=== PATIENT | male | born 1960 | race Caucasian/White ===

== ENCOUNTER → 2018-04-27 | Outpatient (CLI) | payer BC ==
[~2018-04-27] VITALS: Ht 180.3 cm; Wt 86.2 kg
[~2018-04-27] MED LIST: CATHETER FLUSH 10 ML SYR IV PRN; REGADENOSON 0.4 MG/5 ML SYR (LEXISCAN) IV ONE
[2018-04-27 09:21] VITALS: BP 159/94
--- NOTE | 2018-05-02 22:30 | STRESS TEST ---
DATE OF SERVICE: 04/27/2018 RESTING AND POST REGADENOSON TECHNETIUM-99M TETROFOSMIN SPECT CT IMAGING ORDERING PHYSICIAN: Dr. Carter. PRIMARY PHYSICIAN: Dr. Garcia. CLINICAL DIAGNOSES: Shortness of breath, hyperlipidemia, hypertension. Baseline images were carried out after injection of 10.43 mCi of technetium-99m Tetrofosmin. This was followed by 0.4 mg regadenoson and 30.2 mCi of technetium-99m Tetrofosmin for stress imaging. The electrocardiogram showed sinus rhythm at baseline and did not change significantly with the regadenoson infusion. The patient tolerated the procedure well. Review of images at rest and following stress does not indicate distant perfusion defects consistent with significant myocardial ischemia or infarction. Some diaphragmatic attenuation of the inferior wall is seen both at rest and following regadenoson infusion. Gated images show normal global left ventricular systolic function with normal regional wall motion, including the inferior wall. Left ventricular ejection fraction is 60%. Left ventricular end diastolic volume is 75 mL. TID is absent (1.02). CONCLUSIONS: 1. No evidence of significant myocardial ischemia or infarction on this study. 2. Normal regional wall motion. 3. Normal global left ventricular systolic function with a calculated ejection fraction of 60%. Job ID: [id number] DocumentID: [id number] Dictated Date: 05/02/2018 18:20:36 Data Integrity Consultant Date: 05/02/2018 22:30:27 Dictated By: FELICIANO CARTER MD, MA, FACP, FACC,
== END ==
LOC: CARD 07:35
PROVIDERS: ATTEND Internal Medicine Cardiovascular Disease
DX: I10 Essential (primary) hypertension (principal); R73.01 Impaired fasting glucose; E78.5 Hyperlipidemia, unspecified; R06.02 Shortness of breath
CPT/HCPCS: 78452; 93017

== ENCOUNTER → 2018-05-25 | Outpatient (CLI) | payer BC ==
[~2018-05-25] MED LIST changes: -REGADENOSON 0.4 MG/5 ML SYR (LEXISCAN) IV ONE
--- NOTE | 2018-05-25 12:54 | Diagnostic Imaging Report ---
HEPATOBILIARY SCAN DATE: May 25, 2018. INDICATION: 57-year-old male, right upper quadrant abdominal pain. PROCEDURE: 5.26 mCi of Tc-99m choletech was administered intravenously and serial anterior planar images over the liver and upper abdomen were obtained. FINDINGS: There is clearance of background activity by the liver indicating hepatocyte function. There is radiotracer excretion into the bile ducts with prompt filling of the gallbladder. There is radiotracer extension into the small bowel. There is no identified enterogastric reflux. Ensure was administered for calculation of gallbladder ejection fraction. Gallbladder ejection fraction was calculated to be 37%. IMPRESSION: Normal hepatobiliary scan. No evidence of acute or chronic cholecystitis. Dictated by: Dictated on workstation # [id number]
== END ==
LOC: CARD 09:49
PROVIDERS: ATTEND Family Medicine
DX: R10.11 Right upper quadrant pain (principal)
CPT/HCPCS: 78227

== ENCOUNTER → 2019-05-28 | Outpatient (CLI) | payer BC ==
--- NOTE | 2019-05-28 12:44 | Diagnostic Imaging Report ---
EXAMINATION: Gastric emptying study. INDICATION: Bloating. COMPARISON: There are no prior studies available for comparison. TECHNIQUE: This exam is performed following administration of 1.0 mCi of sulfur colloid in egg. FINDINGS: Normally, 50% of the radiotracer clears from the stomach by 60 minutes. On this exam, at 90 minutes 79% of the radiotracer had cleared from the stomach. This would indicate that there is no delay in gastric emptying. At approximately 2 hours, 83% had cleared, and at 4 hours, 98% of the radiotracer had cleared. IMPRESSION: There is no evidence for delay in gastric emptying. Dictated by: Dictated on workstation # [id number]
== END ==
LOC: CARD 06:40
PROVIDERS: ATTEND Internal Medicine Gastroenterology
DX: R14.0 Abdominal distension (gaseous) (principal)
CPT/HCPCS: 78264

== ENCOUNTER → 2019-09-04 | Outpatient (CLI) | payer BC | LOC: CARD 13:21 | PROVIDERS: ATTEND Internal Medicine Cardiovascular Disease | DX: E78.5 Hyperlipidemia, unspecified (principal); I10 Essential (primary) hypertension; R06.02 Shortness of breath; R07.89 Other chest pain; R00.2 Palpitations | CPT/HCPCS: 93306 ==

== ENCOUNTER 2020-01-21 08:54 | Day surgery (SDC) | payer BC ==
[~2020-01-21] VITALS: Ht 180 cm; Wt 93.1 kg
[~2020-01-21 08:54] MED LIST changes: +ASPI-586 PO; +ATEN25TA PO; +BENA20TA7 PO; -CATHETER FLUSH 10 ML SYR IV PRN; +FAMO20TA3 PO; +PANT40TA3 PO; +SIME125T50 PO; +SIMV20TA26 PO
[2020-01-21 09:23] VITALS: BP 134/93
--- NOTE | 2020-01-21 18:28 | OPERATIVE REPORT ---
DATE OF SERVICE: 01/21/2020 LOOP RECORDER IMPLANTATION PREOPERATIVE DIAGNOSIS: Palpitations. POSTOPERATIVE DIAGNOSIS: Palpitations. PROCEDURE: Loop recorder implantation. INDICATIONS: The patient is a 59-year-old man who has been having palpitations that are relatively infrequent, but quite bothersome to him and that lasts for a several minutes at a time. Implantable loop recorder was recommended. Informed consent was obtained. DESCRIPTION OF PROCEDURE: [facility] The left prepectoral area was prepared and draped in the usual sterile fashion. Lidocaine 1% was used for local anesthesia. Tools provided with Medtronic Reveal LINQ device were used to make a pocket anterior to the left fourth intercostal space into which the device was placed and the edges were closed using Dermabond and Steri-Strips. He tolerated the procedure well. The device is Medtronic Reveal LINQ with serial #[id number]. Job ID: [id number] DocumentID: [id number] Dictated Date: 01/21/2020 10:02:34 Well Puller Date: 01/21/2020 18:27:44 Dictated By: FELICIANO JUAN MD, MA, FACP, FACC,
== END 2020-01-21 10:35 | disposition home or self-care (01) ==
LOC: CATH 08:54
PROVIDERS: ATTEND Internal Medicine Cardiovascular Disease
DX: R00.2 Palpitations (principal); I47.1 Supraventricular tachycardia; I25.10 Atherosclerotic heart disease of native coronary artery without angina pectoris; I10 Essential (primary) hypertension; E78.5 Hyperlipidemia, unspecified; K21.9 Gastro-esophageal reflux disease without esophagitis; Z90.89 Acquired absence of other organs; Z90.49 Acquired absence of other specified parts of digestive tract; Z88.0 Allergy status to penicillin; Z79.82 Long term (current) use of aspirin; Z79.899 Other long term (current) drug therapy; Z90.710 Acquired absence of both cervix and uterus; Z83.3 Family history of diabetes mellitus
CPT/HCPCS: 33285

== ENCOUNTER 2020-03-08 12:12 | Emergency (ER) | payer BC ==
[~2020-03-08] VITALS: Ht 180.3 cm; Wt 90.7 kg
[2020-03-08] MEDS ORDERED: cloNIDine 0.1 MG (CATAPRES) TAB PO ONE (12:30)
[2020-03-08 12:41] LABS: BASOPHILS % (AUTO) 0 % (0-10); EOSINOPHILS # (AUTO) 0.1 10^3/uL (0.0-0.3); EOSINOPHILS % (AUTO) 1 % (0-10); HEMATOCRIT 44 % (40-54); HEMOGLOBIN 15.5 G/DL (13.3-17.7); LYMPHOCYTES # (AUTO) 1.3 X 10^3 (1.0-4.0); LYMPHOCYTES % (AUTO) 16 % (12-44); MEAN CORPUSCULAR HEMOGLOBIN 30 PG (25-34); MEAN CORPUSCULAR HGB CONC 35 G/DL (32-36); MEAN CORPUSCULAR VOLUME 86 FL (80-99); MEAN PLATELET VOLUME 10.5 FL (7.4-10.4); MONOCYTES % (AUTO) 12 % (0-12); NEUTROPHILS # (AUTO) 5.8 X 10^3 (1.8-7.8); NEUTROPHILS % (AUTO) 71 % (42-75); PLATELET COUNT 364 10^3/uL (130-400); RED CELL DISTRIBUTION WIDTH 12.1 % (10.0-14.5); WHITE BLOOD COUNT 8.2 10^3/uL (4.3-11.0)
--- NOTE | 2020-03-08 12:46 | ED General ---
General Chief Complaint: General Problems/Pain Stated Complaint: DIZZY Nursing Triage Note: PT AMB TO [facility]WITH COMPLAINT OF FEELING DIZZY AND TINGLY ALL OVER. STATES AFTER TAKING HIS BP MEDICATION, HE STARTED TO FEEL BETTER. Nursing Sepsis Screen: No Definite Risk Source of Information: Patient Exam Limitations: No Limitations History of Present Illness Date Seen by Provider: Mar 08, 2020 Time Seen by Provider: 12:42 Initial Comments To ER with reports of feeling dizzy and tingly all over as if "ants are crawling on me" last night and one episode this morning. He states that after he took his Eliquis last night he felt better within a few minutes. He has paroxysmal A. fib and has a loop recorder. He had a clean heart catheter in August of this year. Follow-up with Dr. Carter. He is on Toprol-XL. Denies anxiety. He is to see Dr. Cornelius on Monday of this week for paroxysmal A. fib. He feels fine currently Timing/Duration: 1-2 Days, Gone Now, Intermittent Severity: Moderate Associated Systoms: No Chest Pain Allergies and Home Medications Allergies Coded Allergies: Penicillins (Verified Allergy, 03/29/10) Home Medications Aspirin 81 Mg Tablet.dr, 81 MG PO HS, (Reported) Atenolol 25 Mg Tablet, 25 MG PO BID, (Reported) Benazepril HCl 20 Mg Tablet, 20 MG PO HS, (Reported) Clonidine HCl 0.1 Mg Tablet, 0.1 MG PO BID PRN for SYSTOLIC BLOOD PRESSURE To twice a day as needed for systolic blood pressure over 160 Prescribed by: CARL MERCEDES on 03/08/20 1317 Famotidine 20 Mg Tablet, 20 MG PO BID PRN for HEARTBURN, (Reported) Pantoprazole Sodium 40 Mg Tablet.dr, 40 MG PO DAILY, (Reported) Simethicone 125 Mg Tab.chew, 125 MG PO QIDPCHS PRN for GAS/BLOATING, (Reported) Simvastatin 20 Mg Tablet, 20 MG PO HS, (Reported) Patient Home Medication List Home Medication List Reviewed: Yes Review of Systems Review of Systems Constitutional: see HPI EENTM: see HPI Respiratory: no symptoms reported Cardiovascular: see HPI; No chest pain; Hx of Intervention; No palpitations Genitourinary: no symptoms reported Musculoskeletal: no symptoms reported Skin: no symptoms reported Psychiatric/Neurological: No Symptoms Reported; Denies Anxiety Hematologic/Lymphatic: No Symptoms Reported Past Jiteaig-Oiooov-Sjzjmq Hx Patient Social History Alcohol Use: Denies Use Recreational Drug Use: No Smoking Status: Former Smoker Type Used: Cigarettes Recent Foreign Travel: No Contact w/Someone Who Travel: No Recent Infectious Disease Expo: No Recent Hopitalizations: No Immunizations Up To Date Tetanus Booster (TDap): Unknown Past Medical History Surgeries: Yes (RENAL MASS, ) Gallbladder, Orthopedic, Tonsillectomy Respiratory: Yes Sleep Apnea Currently Using CPAP: No Currently Using BIPAP: No Cardiac: Yes Atrial Fibrillation, Hypertension, Palpitations Neurological: No Genitourinary: Yes (RENAL MASS REMOVED) Gastrointestinal: Yes (ABDOMINAL BLOATING AND DISCOMFORT) Musculoskeletal: No Endocrine: No HEENT: No Cancer: Yes (RENAL) Did You Recieve Any Treatments: No What Type of Treatment Did You: Surgical Intervention Psychosocial: No Blood Disorders: No Physical Exam Vital Signs Vital Signs - First Documented 03/08/20 12:18 Pulse 81 Resp 16 B/P (MAP) 187/117 (140) Pulse Ox 98 O2 Delivery Room Air Capillary Refill : Less Than 3 Seconds Height, Weight, BMI Height: 5'11.00" Weight: 190lbs. 0.0oz. 86.101388rh; 27.00 BMI Method: General Appearance: No Apparent Distress, WD/WN, Anxious (denies anxiety but does appear anxious) Eyes: Bilateral Eye Normal Inspection, Bilateral Eye PERRL, Bilateral Eye EOMI Neck: Full Range of Motion, Normal Inspection Respiratory: No Accessory Muscle Use, No Respiratory Distress Cardiovascular: Regular Rate, Rhythm, Normal Peripheral Pulses, Other (normal sinus rhythm in the 80s) Gastrointestinal: Non Tender, Soft Extremity: Normal Capillary Refill, Normal Inspection Neurologic/Psychiatric: Alert, Oriented x3 Skin: Normal Color, Warm/Dry Progress/Results/Core Measures Suspected Sepsis Recent Fever Within 48 Hours: No Infection Criteria Present: None New/Unexplained Altered Menta: No Sepsis Screen: No Definite Risk SIRS Temperature: Pulse: 81 Respiratory Rate: 16 Laboratory Tests 03/08/20 12:35: White Blood Count 8.2 Blood Pressure 187 /117 Mean: 140 Laboratory Tests 03/08/20 12:35: Creatinine 1.13, Platelet Count 364, Total Bilirubin 0.7 Results/Orders Lab Results Laboratory Tests Test 03/08/20 12:35 Range/Units White Blood Count 8.2 4.3-11.0 10^3/uL Red Blood Count 5.11 4.35-5.85 10^6/uL Hemoglobin 15.5 13.3-17.7 G/DL Hematocrit 44 40-54 % Mean Corpuscular Volume 86 80-99 FL Mean Corpuscular Hemoglobin 30 25-34 PG Mean Corpuscular Hemoglobin Concent 35 32-36 G/DL Red Cell Distribution Width 12.1 10.0-14.5 % Platelet Count 364 130-400 10^3/uL Mean Platelet Volume 10.5 H 7.4-10.4 FL Neutrophils (%) (Auto) 71 42-75 % Lymphocytes (%) (Auto) 16 12-44 % Monocytes (%) (Auto) 12 0-12 % Eosinophils (%) (Auto) 1 0-10 % Basophils (%) (Auto) 0 0-10 % Neutrophils # (Auto) 5.8 1.8-7.8 X 10^3 Lymphocytes # (Auto) 1.3 1.0-4.0 X 10^3 Monocytes # (Auto) 1.0 0.0-1.0 X 10^3 Eosinophils # (Auto) 0.1 0.0-0.3 10^3/uL Basophils # (Auto) 0.0 0.0-0.1 10^3/uL Sodium Level 138 135-145 MMOL/L Potassium Level 3.7 3.6-5.0 MMOL/L Chloride Level 107 98-107 MMOL/L Carbon Dioxide Level 19 L 21-32 MMOL/L Anion Gap 12 5-14 MMOL/L Blood Urea Nitrogen 13 7-18 MG/DL Creatinine 1.13 0.60-1.30 MG/DL Estimat Glomerular Filtration Rate > 60 BUN/Creatinine Ratio 12 Glucose Level 109 H 70-105 MG/DL Calcium Level 9.0 8.5-10.1 MG/DL Corrected Calcium 8.8 8.5-10.1 MG/DL Magnesium Level 2.1 1.6-2.4 MG/DL Total Bilirubin 0.7 0.1-1.0 MG/DL Aspartate Amino Transf (AST/SGOT) 18 5-34 U/L Alanine Aminotransferase (ALT/SGPT) 13 0-55 U/L Alkaline Phosphatase 76 40-136 U/L Troponin I < 0.028 <0.028 NG/ML Total Protein 6.9 6.4-8.2 GM/DL Albumin 4.3 3.2-4.5 GM/DL My Orders Orders - CARL MERCEDES APRN Cbc With Automated Diff (03/08/20 12:27) Comprehensive Metabolic Panel (03/08/20 12:27) Magnesium (03/08/20 12:27) Troponin I (03/08/20 12:27) Ekg Tracing (03/08/20 12:27) Staff Midwife (03/08/20 12:27) Clonidine Tablet (Catapres Tablet) (03/08/20 12:30) Amlodipine Tablet (Norvasc Tablet) (03/08/20 13:30) Medications Given in ED Current Medications Medications Dose Ordered Sig/Tati Route Start Time Stop Time Status Last Admin Dose Admin Clonidine HCl 0.1 mg ONCE ONCE PO 03/08/20 12:30 03/08/20 12:31 DC 03/08/20 12:38 0.1 MG Vital Signs/I&O 03/08/20 12:18 Pulse 81 Resp 16 B/P (MAP) 187/117 (140) Pulse Ox 98 O2 Delivery Room Air Capillary Refill : Less Than 3 Seconds Blood Pressure Mean: 140 Departure Impression Primary Impression: Hypertension Qualified Codes: I10 - Essential (primary) hypertension Additional Impression: history of paroxysmal A. fib Disposition: HOME, SELF-CARE Condition: Stable Departure-Patient Inst. Decision time for Depature: 12:44 Referrals: ABUNDIO STRAUSS MD (PCP/Family) Primary Care Physician Patient Instructions: Medicines for High Blood Pressure Add. Discharge Instructions: Return to ER for any concerns. Continue current medications. Call your doctor tomorrow to make an appointment to be seen for follow-up and possibly other medications for blood pressure control All discharge instructions reviewed with patient and/or family. Voiced understanding. Scripts Clonidine HCl (Clonidine HCl) 0.1 Mg Tablet 0.1 MG PO BID PRN for SYSTOLIC BLOOD PRESSURE, #2 TAB To twice a day as needed for systolic blood pressure over 160 Prov: CARL MERCEDES APRN 03/08/20 Copy Copies To 1: FELICIANO CARTER MD FACP FAC CCDS CARL MERCEDES APRN Mar 08, 2020 12:46
[2020-03-08 12:55] LABS: ALBUMIN 4.3 GM/DL (3.2-4.5); CHLORIDE 107 MMOL/L (98-107); POTASSIUM 3.7 MMOL/L (3.6-5.0); SODIUM 138 MMOL/L (135-145)
[2020-03-08 12:57] LABS: GLUCOSE 109 MG/DL (70-105)
[2020-03-08 12:58] LABS: TOTAL PROTEIN 6.9 GM/DL (6.4-8.2)
[2020-03-08 12:59] LABS: BILIRUBIN,TOTAL 0.7 MG/DL (0.1-1.0); CARBON DIOXIDE 19 MMOL/L (21-32)
[2020-03-08 13:01] LABS: ALKALINE PHOSPHATASE 76 U/L (40-136); CREATININE SERUM 1.13 MG/DL (0.60-1.30); GFR ESTIMATED > 60
[2020-03-08 13:02] LABS: BUN/CREATININE RATIO 12
[2020-03-08 13:04] LABS: ALANINE AMINOTRANSFERASE 13 U/L (0-55); MAGNESIUM 2.1 MG/DL (1.6-2.4)
[2020-03-08] MEDS ORDERED: CLON0.1T PO (13:17)
[2020-03-08] MEDS ORDERED: amLODIPine 5 MG (NORVASC) TAB PO ONE (13:30)
[2020-03-08] MEDS ORDERED: hydrALAZINE (APESOLINE) 20 MG/ML VIAL IV ONE (13:45)
[2020-03-08 14:08] VITALS: BP 147/103
== END 2020-03-08 14:08 | disposition home or self-care (01) ==
LOC: EDUNIT# 12:12 → ER 12:13
DX: I10 Essential (primary) hypertension (principal); I48.0 Paroxysmal atrial fibrillation; Z79.01 Long term (current) use of anticoagulants; Z95.9 Presence of cardiac and vascular implant and graft, unspecified; Z88.0 Allergy status to penicillin; Z79.82 Long term (current) use of aspirin; Z87.891 Personal history of nicotine dependence
CPT/HCPCS: 36415; 80053; 83735; 84484; 85025; 93005

== ENCOUNTER → 2020-04-06 | Outpatient (CLI) | payer BC ==
[~2020-04-06] MED LIST changes: +CLON0.1T PO
== END ==
LOC: LABNPT 06:54
PROVIDERS: ATTEND Internal Medicine Interventional Cardiology
DX: Z01.818 Encounter for other preprocedural examination (principal); Z53.9 Procedure and treatment not carried out, unspecified reason